=== PATIENT | female | born 1985 | race Caucasian/White ===

== ENCOUNTER 2019-05-18 11:00 | Inpatient (IN) | payer BC ==
[2019-05-18 11:41] VITALS: BMI 32.6
[2019-05-18] MEDS ORDERED: Ondansetron PF 4 MG/2 ML Vial IVP PRN ×2 (12:01→19:47)
[2019-05-18] MEDS ORDERED: Ibuprofen 800 MG TAB PO PRN (12:01)
[2019-05-18] MEDS ORDERED: hydrALAZINE 20 MG/ML VIAL SLOW IVP PRN ×2 (12:01→19:47)
[2019-05-18] MEDS ORDERED: Promethazine HCl 25 MG/ML VIAL IM PRN ×2 (12:01→19:47)
[2019-05-18] MEDS ORDERED: Lidocaine 1% (PF) 30 ML VIAL SC PRN (12:01)
[2019-05-18] MEDS ORDERED: NS / Oxytocin 40 units/1000ml 1,000 ML IV PRN (12:01)
[2019-05-18] MEDS ORDERED: Butorphanol Tartrate 1 MG/ML VIAL SLOW IVP PRN (12:01)
[2019-05-18] MEDS: Lactated Ringer's 1,000 ML IV SCH ×2 (12:16→14:59)
[2019-05-18] MEDS ORDERED: Fentanyl 4 mcg/Bup 0.1% Cadd 100 ML ONE (13:13)
[2019-05-18 13:27] LABS: Hemoglobin 13.4 g/dL (12.0-16.0); Mean Corpuscular HGB CONC 36.4 g/dL (32.0-36.0); Mean Corpuscular Hemoglobin 31.1 pg (27.0-31.0); Mean Corpuscular Volume 85.4 fL (78.0-98.0); Mean Platelet Volume 7.7 fL (7.4-10.4); Platelet Count 213 thou/uL (130-400); RBC Distribution Width 12.1 % (11.5-14.5); Red Blood Cell (RBC) Count 4.32 mill/uL (4.20-5.40); White Blood Cell (WBC) Count 22.9 thou/uL (4.8-10.8)
[2019-05-18 14:05] LABS: HBSAg Index 0.13 S/CO (0-0.99); Hep B Surf Ag Non-Reactive S/CO (NonReactive); Syphilis Antibody Nonreactive (Nonreactive); Syphilis Antibody Index 0.07 S/CO (<1.00 Non-Reactive)
[2019-05-18] MEDS ORDERED: Lidocaine 2% MPF 10 ML AMP (For Epidural Use) ONE (14:45)
[2019-05-18] MEDS ORDERED: Bupivacaine/Epinephrine 0.25% 30 ML VIAL ONE (14:45)
--- NOTE | 2019-05-18 17:31 | PDOC.LDHP ---
Labor and Delivery H&P Chief complaint: contractions HPI: 34yo at 40w2d by LMP with painful ctx since 0730 this am. No LOF VB. Current gestational age (weeks): 40 Due date: 05/16/19 Dating criteria: last menstrual period Grav: 2 Para: 1 Current complications: none Abnormal US findings: No Past Medical History: hypothyroid Current medications: pre-erica vitamins, other (levothyroxine) Previous surgical history: other Allergies/Adverse Reactions: Allergies Allergy/AdvReac Type Severity Reaction Status Date / Time No Known Allergies Allergy Unverified 04/13/13 13:01 Social history: none - Physical Exam Vital signs reviewed and normal: yes General: NAD, breathing through contractions Heart: RRR Lungs: CTAB Abdomen: gravid Extremeties: no edema FHT: category 1 [place] contractions every: 3-4 min - Vaginal Exam cm dilated: 10 Effacement: 100% Station: 0 - OB Labs Blood type: O RH: positive Antibody Screen: negative HIV: negative RPR: negative HEPSAg: negative 1 hour GCT: negative GBS: negative Urine drug screen: negative Rubella: immune - Assessment L&D Assessment: term patient in labor - Plan Plan: admit to L&D, labor augmentation if indicated, informed consent obtained, anesthesia consult for pain management
--- NOTE | 2019-05-18 17:33 | PDOC.OPDEL ---
OB Operative/Delivery Note Delivery Dr/Surgeon: Lasha Assist: n/a Pre-Delivery Diagnosis: active labor, non-reassuring tracing Procedure/Post Delivery Dx: operative vaginal delivery (VAVD) Weeks gestation: 40 Anesthesia: epidural - Findings A Sex: female - 1 min: 8 - 5 min: 9 - Additional Findings/Plan Placenta delivered: spontaneous Repaired Obstetrical Laceration: 1st degree Estimated blood loss: 200 Post delivery plan: routine recovery
[2019-05-18] MEDS ORDERED: Milk Of Magnesia 30 ML UDCUP PO PRN (19:47)
[2019-05-18] MEDS ORDERED: Bisacodyl 10 MG SUPP PR PRN (19:47)
[2019-05-18] MEDS ORDERED: Lanolin Ointment 7 GM TUBE TOP PRN (19:47)
[2019-05-18] MEDS ORDERED: NS / Oxytocin 40 units/1000ml 1,000 ML IV SCH (19:47)
[2019-05-18] MEDS ORDERED: HYDROcodone/Acetaminophen 5/325 mg Tablet PO PRN ×2 (19:47)
[2019-05-18] MEDS ORDERED: Preparation H Ointment 28 GM TUBE PR PRN (19:47)
[2019-05-18] MEDS ORDERED: Zolpidem Tartrate 5 MG TAB PO PRN (19:47)
[2019-05-18] MEDS ORDERED: diphenhydrAMINE 25 MG CAP PO PRN (19:47)
[2019-05-18] MEDS ORDERED: Adacel (T-DAP) 0.5 ML SYRINGE IM ONE (19:47)
[2019-05-18] MEDS: Ibuprofen 800 MG TAB PO SCH (21:55)
[2019-05-18] MEDS: Docusate Calcium (SURFAK) 240 MG CAP PO SCH (21:55)
[2019-05-19] MEDS: Ibuprofen 800 MG TAB PO SCH ×3 (05:09→21:19)
--- NOTE | 2019-05-19 09:09 | PDOC.PP ---
Post Progress Note Post Day #: 1 Subjective: Patient doing well PPD1. Minimal pain. Lochia slightly heavier than menstrual cylcle. Baby is breast feeding with slight latching difficulty on the right side. Pt is eating well and passing gas. No other concerns at this time. PO intake tolerated: yes Flatus: yes Ambulation: yes Vital Signs (12 hours) Temp Pulse Resp BP Pulse Ox 05/19/19 08:06 97.9 F 57 L 24 H 108/58 L 97 05/19/19 05:06 98.2 F 57 L 18 99/57 L 05/19/19 00:50 98.6 F 58 L 18 106/59 L Weight Weight 173 lb - Physical Examination General: NAD Respiratory: non-labored breathing Abdominal: + bowel sounds, lochia, no distention, appropriately TTP Fundus firm & at: 1 cm below umbilicus Extremities: negative homans (B) Skin: no rash Neurological: no gross focal deficits Psychiatric: A&Ox3, normal affect Result Diagrams: 05/18/19 13:18 Additional Labs: Post Labs Blood Type O POSITIVE 05/18/19 12:19 Hep Bs Antigen Non-Reactive S/CO (NonReactive) 05/18/19 13:18 (1) Vaginal delivery Code(s): O80 - ENCOUNTER FOR FULL-TERM UNCOMPLICATED DELIVERY Status: Acute - Assessment/Plan Pt doing well PPD1. Pain well controlled. Baby is breast feeding with slight latching difficulty on the right. consultation ordered. Continue routine post care.
[2019-05-19] MEDS: Ferrous Sulfate 325 MG TAB PO SCH (09:23)
[2019-05-19] MEDS: Docusate Calcium (SURFAK) 240 MG CAP PO SCH ×2 (09:23→21:20)
[2019-05-19] MEDS: Prenatal Vitamin 1 TAB PO SCH (09:24)
[2019-05-19] MEDS ORDERED: Levothyroxine Sodium 125 MCG TAB PO SCH (10:00)
[2019-05-19] MEDS ORDERED: FLU VACC QS2019-20(6MOS UP)/PF 60 MCG/0.5 ML SYRINGE IM ONE (12:00)
[2019-05-20] MEDS: Ferrous Sulfate 325 MG TAB PO SCH ×3 (02:18→16:54)
[2019-05-20] MEDS: Ibuprofen 800 MG TAB PO SCH ×2 (05:22→14:20)
[2019-05-20] MEDS ORDERED: Levothyroxine Sodium 125 MCG TAB PO SCH (06:00)
[2019-05-20 08:17] VITALS: BP 125/75; TEMP 98.1
[2019-05-20] MEDS ORDERED: Prenatal Vitamin 1 TAB PO SCH (09:00)
[2019-05-20] MEDS ORDERED: Levothyroxine Sodium 25 MCG TAB PO SCH (09:00)
[2019-05-20] MEDS: Prenatal Vitamin 1 TAB PO SCH (09:18)
[2019-05-20] MEDS: Docusate Calcium (SURFAK) 240 MG CAP PO SCH (09:19)
--- NOTE | 2019-05-20 15:40 | PDOC.PP ---
Post Progress Note Post Day #: 2 PO intake tolerated: yes Flatus: yes Vital Signs (12 hours) Temp Pulse Resp BP Pulse Ox 05/20/19 08:16 98.1 F 63 20 125/75 97 Weight Weight 173 lb - Physical Examination General: NAD Respiratory: non-labored breathing Abdominal: no distention, appropriately TTP Extremities: negative homans (B) Skin: no rash Psychiatric: normal affect Result Diagrams: 05/18/19 13:18 Additional Labs: Post Labs Blood Type O POSITIVE 05/18/19 12:19 Hep Bs Antigen Non-Reactive S/CO (NonReactive) 05/18/19 13:18 - Assessment/Plan PPD2 s/p TSVD VSSAF Doing well lochia < menses, pain controlled . Rh pos,RImm MADINA home FU 6w.
== END 2019-05-20 17:35 | disposition home or self-care (01) | DRG 807 ==
LOC: L&D/OP 11:00 → L&D 12:33 → 3SW 20:09
PROVIDERS: ADMIT Student in an Organized Health Care Education/Training Program; ATTEND Student in an Organized Health Care Education/Training Program
PROC: 10E0XZZ Delivery of Products of Conception, External Approach (ICD-10-PCS; principal; 2019-05-18)
PROC: 0HQ9XZZ Repair Perineum Skin, External Approach (ICD-10-PCS; 2019-05-18)
DX: O99.284 Endocrine, nutritional and metabolic diseases complicating childbirth (principal); Z37.0 Single live birth; Z3A.40 40 weeks gestation of pregnancy; O48.0 Post-term pregnancy; E03.9 Hypothyroidism, unspecified; O70.0 First degree perineal laceration during delivery
CPT/HCPCS: 36415; 85027; 86780; 86850; 86900; 86901; 87340; J2001; J2405

== ENCOUNTER 2020-06-30 19:04 | Emergency (ER) | payer BC ==
[2020-06-30 19:31] LABS: Bacteria/HPF None Seen HPF (None Seen); Bilirubin Negative (Negative); Blood, Urine 2+ (Negative); Clarity Clear (Clear); Glucose, Urine (Dipstick) Normal (Negative); Ketone, Urine Negative (Negative); Leukocyte 25 Leu/uL (Negative); Nitrite Negative (Negative); Protein, Urine (Dipstick) Negative (Neg-Trace); RBC/HPF 21-50 HPF (0-3); Specific Gravity, Urine 1.007 (1.002-1.036); Squamous Epithelial 0-3 HPF (0-3); Urobilinogen Normal mg/dL (Less than 2); WBC/HPF 0-3 HPF (0-3); pH, Urine 6.5 (5.0-9.0)
== END 2020-06-30 21:20 | disposition home or self-care (01) ==
LOC: ERS 19:04
DX: N34.1 Nonspecific urethritis (principal); E03.9 Hypothyroidism, unspecified; Z79.899 Other long term (current) drug therapy
CPT/HCPCS: 81003; 81015; 99283

== ENCOUNTER 2023-07-11 10:39 | Outpatient (CLI) | payer BC | END 2023-07-11 10:40 | disposition home or self-care (01) | LOC: BICMAMMO 10:39 | PROVIDERS: ATTEND Student in an Organized Health Care Education/Training Program | DX: Z12.31 Encounter for screening mammogram for malignant neoplasm of breast (principal) | CPT/HCPCS: 77063; 77067 ==